=== PATIENT | male | born 1985 | race Caucasian/White ===

== ENCOUNTER 2019-01-20 09:36 | Emergency (ER) | payer BC ==
--- NOTE | 2019-01-20 09:54 | ED ---
HPI Chest Pain - HPI Summary HPI Summary: The pt is a 33 yr old male presenting to [facility] c/o chest pain beginning 2 days [employer]. He states that he plays hockey once a week but denies any trauma from playing. He notes that his pain is aggravated by deep breathing and exertion. His pain increased when carrying a [place] tree 1 day [employer]. He has been recently diagnosed with celiac disease with weight loss. He describes the CP as an ache and it is located in the anterolateral chest wall. He rates his current pain severity due to the CP a 5/10. No alleviating factors noted. He also reports some SOB but denies any leg edema, leg pain, nausea, vomiting, or fever. - History of Current Complaint Chief Complaint: EDChestPainROMI Time Seen by Provider: 01/20/19 09:42 Hx Obtained From: Patient Onset/Duration: Started Days Ago, Still Present Timing: Constant, Lasting Days Initial Severity: Moderate Current Severity: Moderate Pain Intensity: 5 Pain Scale Used: 0-10 Numeric Chest Pain Location: Left Anterior Chest Pain Radiates To:: Shoulder - left Character: Dull/Aching Aggravating Factor(s): Exertion, Deep Breaths Alleviating Factor(s): Nothing Associated Signs and Symptoms: Positive: Chest Pain, Shortness of Breath, Other : - neg - leg pain. Negative: Fever, Nausea, Vomiting, Edema - Allergy/Home Medications Allergies/Adverse Reactions: Allergies Allergy/AdvReac Type Severity Reaction Status Date / Time gluten Allergy GI Upset Verified 01/20/19 09:43 PMH/Surg Hx/FS Hx/Imm Hx Sensory History: Denies: Hx Legally Blind, Hx Deafness Opthamlomology History: Denies: Hx Legally Blind EENT History: Denies: Hx Deafness - Surgical History Surgical History: None Surgery Procedure, Year, and Place: none Infectious Disease History: No Infectious Disease History: Denies: Traveled Outside the [place] in Last 30 Days - Family History Known Family History: Negative: Renal Disease - Social History Alcohol Use: None Hx Substance Use: No Hx Tobacco Use: No Review of Systems Negative: Fever Positive: Chest Pain Positive: Shortness Of Breath Negative: Vomiting, Nausea Positive: Other - neg - leg pain. Negative: Edema All Other Systems Reviewed And Are Negative: Yes Physical Exam - Summary Physical Exam Summary: Constitutional: Well-developed, Well-nourished, Alert. (-) Distressed Skin: Warm, Dry HENT: Normocephalic; Atraumatic Eyes: Conjunctiva normal Neck: Musculoskeletal ROM normal neck. (-) JVD, (-) Stridor, (-) Tracheal deviation Cardio: Rhythm regular, rate normal, Heart sounds normal; Intact distal pulses; The pedal pulses are 2+ and symmetric. Radial pulses are 2+ and symmetric. (-) Murmur, mild anterolateral chest wall tenderness Pulmonary/Chest wall: Effort normal. (-) Respiratory distress, (-) Wheezes, (-) Rales Abd: Soft, (-) tenderness, (-) Distension, (-) Guarding, (-) Rebound Musculoskeletal: (-) Edema Lymph: (-) Cervical adenopathy Neuro: Alert, Oriented x3 Psych: Mood and affect Normal Triage Information Reviewed: Yes Vital Signs On Initial Exam: Initial Vitals Temp Pulse Resp BP Pulse Ox 98.5 F 69 18 131/67 100 01/20/19 09:36 01/20/19 09:36 01/20/19 09:36 01/20/19 09:36 01/20/19 09:36 Vital Signs Reviewed: Yes Procedures - Sedation Patient Received Moderate/Deep Sedation with Procedure: No Diagnostics - Vital Signs Vital Signs Temp Pulse Resp BP Pulse Ox 01/20/19 09:36 98.5 F 69 18 131/67 100 - Laboratory Result Diagrams: 01/20/19 09:47 01/20/19 09:47 Lab Statement: Any lab studies that have been ordered have been reviewed, and results considered in the medical decision making process. - Radiology CXR Radiology Interpretation Completed By: Radiologist Summary of Radiographic Findings: Impression: No acute cardiopulmonary process by radiograph. ED Physician has reviewed this report. - CT Chest/Thorax CTA CT Interpretation Completed By: Radiologist Summary of CT Findings: IMPRESSION: 1. No pulmonary embolism is identified. 2. The lungs are clear. ED Physician has reviewed this report. - EKG No standard instances Cardiac Rate: NL EKG Rhythm: Sinus Rhythm Ectopy: None Chest Pain Course/Dx - Course Course Of Treatment: The pt is a 33 yr old male presenting to [facility] c/o chest pain beginning 2 days [employer]. He states that he plays hockey once a week but denies any trauma from playing. He notes that his pain is aggravated by deep breathing and exertion. His pain increased when carrying a [place] tree 1 day [employer]. Test results normal except for D-dimer 526. A Chest/Thorax CTA reveals: 1. No pulmonary embolism is identified. 2. The lungs are clear. A CXR reveals: no acute cardiopulmonary process by radiograph. Final Dx is chest pain. Pt will be discharged home with PCP follow up within 2 days. Pt is agreeable with this plan. - Diagnoses Provider Diagnoses: Chest pain Discharge ED - Sign-Out/Discharge Documenting (check all that apply): Patient Departure - discharge - Discharge Plan Condition: Stable Disposition: HOME Patient Education Materials: Chest Pain (ED) Referrals: Bud De Los Santos MD [Medical Doctor] - 2 Days Additional Instructions: Please follow up with your primary care physician within 2 days. Please return to the ED for any new or worsening symptoms. - Billing Disposition and Condition Condition: STABLE Disposition: Home - Attestation Statements Document Initiated by Lisa: Yes Documenting Scribe: Bronson Cordero Provider For Whom Lisa is Documenting (Include Credential): Juan Ramos DO Scribe Attestation: Bronson Yu, scribed for Juan Ramos DO on 01/20/19 at 1816. Scribe Documentation Reviewed: Yes Provider Attestation: The documentation as recorded by the Bronson foreman accurately reflects the service I personally performed and the decisions made by , Juan Ramos DO Status of [place] Document: Viewed
[2019-01-20 10:10] LABS: ABS Basophils 0.1 10^3/ul (0-0.2); ABS Eosinophils 0.1 10^3/ul (0-0.6); ABS Lymphocytes 1.7 10^3/ul (1.0-4.8); ABS Monocytes 0.6 10^3/ul (0-0.8); ABS Neutrophils 4.3 10^3/ul (1.5-7.7); Eosinophil % 1.2 %; Hematocrit 45 % (42-52); Hemoglobin 14.6 g/dL (14.0-18.0); Lymphocyte % 25.1 %; Mean Corpuscular HGB Conc 33 g/dL (31-36); Mean Corpuscular Hemoglobin 29 pg (27-31); Mean Corpuscular Volume 87 fL (80-94); Mean Platelet Volume 7.8 fL (7.4-10.4); Nucleated Red Blood Cells % 0.2; Platelet Count 274 10^3/uL (150-450); Red Blood Count 5.13 10^6 /uL (4.18-5.48); Red Cell Distribution Width 14 % (10-15); White Blood Count 6.8 10^3/uL (3.5-10.8)
[2019-01-20] MEDS ORDERED: Ketorolac INJ* 30 MG/ML 1 ML VIAL IV PUSH ONE (10:10)
[2019-01-20] MEDS ORDERED: NS 0.9% 1000 ML** 1,000 ML IV ONE ×2 (10:10→12:45)
[2019-01-20 10:15] LABS: INR 1.06 (0.82-1.09)
[2019-01-20 10:25] LABS: Albumin 4.3 g/dL (3.2-5.2); Albumin/Globulin Ratio 1.7 (1-3); BUN/Creatinine Ratio 10.5 (8-20); Calcium 9.5 mg/dL (8.6-10.3); EGFR African American 125.5 (>60); EGFR Non-African American 103.7 (>60); Globulin 2.6 g/dL (2-4); Potassium 4.1 mmol/L (3.5-5.0); Total Bilirubin 0.5 mg/dL (0.2-1.0); Total Protein 6.9 g/dL (6.4-8.9)
[2019-01-20] MEDS ORDERED: Iohexol 350* (CONTRAST) 500 ML MDV IV ONE (12:59)
[2019-01-20 14:40] VITALS: BP 116/70
== END 2019-01-20 14:50 | disposition home or self-care (01) ==
LOC: ED 09:36
DX: R07.9 Chest pain, unspecified (principal)
CPT/HCPCS: 36415; 71046; 71275; 80053; 84484; 85025; 85379; 85610; 93005; 96361; 96374; 99283; J1885; Q9967